=== PATIENT | female | born 1990 | race Caucasian/White ===

== ENCOUNTER → 2018-04-02 15:01 | Outpatient (CLI) | payer SELFPAY ==
[2018-04-02 16:01] LABS: APPEARANCE CLEAR (CLEAR); BILIRUBIN NEGATIVE (NEGATIVE); COLOR YELLOW (YELLOW); GLUCOSE 250 mg/dL (NEGATIVE); KETONE NEGATIVE (NEGATIVE); NITRITE NEGATIVE (NEGATIVE); PROTEIN NEGATIVE (NEGATIVE); UROBILINOGEN NORMAL (NORMAL)
[2018-04-02 16:02] LABS: UDS - AMPHET POSITIVE QUAL (NEGATIVE); UDS - BARB NEGATIVE QUAL (NEGATIVE); UDS - BENZO NEGATIVE QUAL (NEGATIVE); UDS - COCAINE NEGATIVE QUAL (NEGATIVE); UDS - OPIATE NEGATIVE QUAL (NEGATIVE); UDS - PCP NEGATIVE QUAL (NEGATIVE); UDS - THC POSITIVE QUAL (NEGATIVE)
== END | disposition home or self-care (01) ==
LOC: D.LDO 15:01
PROVIDERS: Obstetrics & Gynecology
DX: O26.893 Other specified pregnancy related conditions, third trimester (principal); Z3A.30 30 weeks gestation of pregnancy; R20.2 Paresthesia of skin; R10.32 Left lower quadrant pain

== ENCOUNTER 2018-05-01 17:36 | Outpatient (CLI) | payer SELFPAY ==
[2018-05-01 19:31] LABS: APPEARANCE CLEAR (CLEAR); BILIRUBIN NEGATIVE (NEGATIVE); COLOR YELLOW (YELLOW); GLUCOSE NEGATIVE (NEGATIVE); KETONE NEGATIVE (NEGATIVE); NITRITE NEGATIVE (NEGATIVE); PROTEIN NEGATIVE (NEGATIVE); SPECIFIC GRAVITY 1.015 (1.005-1.020); UROBILINOGEN NORMAL (NORMAL)
[2018-05-01 19:41] LABS: UDS - AMPHET NEGATIVE QUAL (NEGATIVE); UDS - BARB NEGATIVE QUAL (NEGATIVE); UDS - BENZO NEGATIVE QUAL (NEGATIVE); UDS - COCAINE NEGATIVE QUAL (NEGATIVE); UDS - OPIATE NEGATIVE QUAL (NEGATIVE); UDS - PCP NEGATIVE QUAL (NEGATIVE); UDS - THC POSITIVE QUAL (NEGATIVE)
== END 2018-05-01 19:10 | disposition home or self-care (01) ==
LOC: D.LDO 17:36
PROVIDERS: Obstetrics & Gynecology
DX: O26.893 Other specified pregnancy related conditions, third trimester (principal); Z3A.35 35 weeks gestation of pregnancy; R07.81 Pleurodynia

== ENCOUNTER 2018-05-21 07:05 | Inpatient (IN) | payer MEDICAID ==
[~2018-05-21] VITALS: Ht 152.4 cm; Wt 66.2 kg
--- NOTE | ~2018-05-21 | DS ---
PATIENT:ADRIANA MALDONADO :89 MEDICAL RECORD: [id number] DISCHARGE SUMMARY ADMISSION DATE: 05/21/18 DISCHARGE DATE: 05/23/18 The patient was admitted on 05/21/2018. HOSPITAL COURSE: A 27-year-old at 37 weeks and 5 days. The patient was noted to be O positive, group B strep positive, and rubella immune. The patient was admitted in active labor. The patient reported a past medical history significant for kidney stones. PAST SURGICAL HISTORY: Significant for appendectomy and removal of kidney stones. ALLERGIES: The patient reported allergies to ROCEPHIN. MEDICATIONS: Included vitamins. FAMILY HISTORY: The patient reported a family history significant for a parent with neurologic disorder and diabetes. SOCIAL HISTORY: The patient reported being a daily smoker of both cigarettes and marijuana. PHYSICAL EXAMINATION: VITAL SIGNS: On initial examination, the patient was found to be normotensive and afebrile. LUNGS: Clear to auscultation. HEART: Regular rate and rhythm. PELVIC: Uterus was appropriately sized and nontender. EXTREMITIES: Lower extremities were free of swelling or Homans sign. The patient was noted to be ting. wellbeing was reassuring with category 1 tracing. ASSESSMENT AND PLAN: 1. Admission, term intrauterine at 37 weeks and 5 days. 2. Labor. 3. Positive group B strep. Plan for management of labor augmentation as needed, AROM when appropriate, category 1 tracing. The patient started on antibiotics for group B strep. The patient was ruptured at approximately 4 cm with clear fluid, category 1 tracing was noted. The patient progressed to the second stage of labor and had a vacuum-assisted vaginal delivery over an intact perineum and repair of bilateral periurethral tears. Delivery note is as on the chart. The patient did well overnight on day #0, tolerating p.o. pain meds, general diet, ambulating well and voiding freely. On the morning of day #1, the patient continued to do well. Vital signs were stable. The patient was afebrile. Hemoglobin was found to be appropriate. Uterus was infraumbilical and appropriately tender with minimal lochia. The patient was tolerating general diet, p.o. pain meds and ambulating well. The patient was discharged home on day #1 with instructions to follow up in 4 weeks. TRANSINT:[id number] Voice Confirmation ID: [id number] DOCUMENT ID: [id number] DISCHARGE SUMMARY REPORT [id number] ADRIANA MALDONADO, JOSE MARTIN Whelan MD at 1754 CC: [id number] DICTATION DATE: 06/23/18 075 [place]: 06/23/18 1208 DIS IN 05/23/18 [place] [id number] [place] [id number]
[2018-05-21 08:05] LABS: APPEARANCE CLEAR (CLEAR); BILIRUBIN NEGATIVE (NEGATIVE); COLOR STRAW (YELLOW); GLUCOSE NEGATIVE (NEGATIVE); KETONE NEGATIVE (NEGATIVE); NITRITE NEGATIVE (NEGATIVE); PROTEIN NEGATIVE (NEGATIVE); UROBILINOGEN NORMAL (NORMAL)
[2018-05-21] MEDS ORDERED: PRENATAL COMPLE1 TAB PO (10:18)
[2018-05-21 10:29] VITALS: BP 104/58; BMI 28.5
[2018-05-21 10:38] LABS: HEMATOCRIT 32.1 % (36.0-48.0); HEMOGLOBIN 10.9 g/dL (12-16); MCH 29.3 pg (26.0-34.0); MCV 86.3 fL (80.0-100.0); RBC 3.72 10x6/uL (4.00-5.40); WBC 15.8 10x3/uL (4.8-10.8)
[2018-05-21 12:31] LABS: UDS - AMPHET NEGATIVE QUAL (NEGATIVE); UDS - BARB NEGATIVE QUAL (NEGATIVE); UDS - BENZO NEGATIVE QUAL (NEGATIVE); UDS - COCAINE NEGATIVE QUAL (NEGATIVE); UDS - OPIATE NEGATIVE QUAL (NEGATIVE); UDS - PCP NEGATIVE QUAL (NEGATIVE); UDS - THC POSITIVE QUAL (NEGATIVE)
[2018-05-21 19:10] VITALS: BP 112/61
[2018-05-22 06:13] LABS: RAPID PLASMA REAGIN Non Reactive (Non Reactive)
[2018-05-22 07:06] LABS: BASOPHILS 0.2 % (0-2); EOSINOPHILS 1.1 % (0-7); HEMATOCRIT 30.4 % (36.0-48.0); HEMOGLOBIN 10.2 g/dL (12-16); IMMATURE GRANULOCYTES 0.7 % (0-5); LYMPHOCYTES 27.4 % (15-50); MCH 28.8 pg (26.0-34.0); MCHC 33.6 g/dL (31.0-37.0); MCV 85.9 fL (80.0-100.0); MEAN PLATELET VOLUME 11.3 fL (7.4-10.4); MONOCYTES 8.9 % (2-11); NEUTROPHILS 61.7 % (40-80); PLATELET COUNT 225 10x3/uL (130-400); RBC 3.54 10x6/uL (4.00-5.40)
[2018-05-22 07:50] VITALS: BP 98/60
[2018-05-22 15:10] VITALS: Ht 152.4 cm; Wt 66.2 kg
[2018-05-22 15:23] VITALS: BP 110/71
[2018-05-22 20:02] VITALS: BP 119/84
[2018-05-23 08:19] LABS: BASOPHILS 0.4 % (0-2); EOSINOPHILS 2.4 % (0-7); HEMATOCRIT 32.5 % (36.0-48.0); HEMOGLOBIN 10.9 g/dL (12-16); IMMATURE GRANULOCYTES 0.9 % (0-5); MCH 28.8 pg (26.0-34.0); MCHC 33.5 g/dL (31.0-37.0); MCV 85.8 fL (80.0-100.0); MEAN PLATELET VOLUME 11.3 fL (7.4-10.4); MONOCYTES 8.2 % (2-11); NEUTROPHILS 56.1 % (40-80); PLATELET COUNT 257 10x3/uL (130-400); RBC 3.79 10x6/uL (4.00-5.40); RDW 13.2 % (11.5-14.5); WBC 14.1 10x3/uL (4.8-10.8)
[2018-05-23 09:31] VITALS: BP 117/65
[2018-05-25 08:16] LABS: UDSC - AMPHET Negative ng/mL (Cutoff=1000); UDSC - BARB Negative ng/mL (Cutoff=300); UDSC - BENZO Negative ng/mL (Cutoff=300); UDSC - COC Negative ng/mL (Cutoff=300); UDSC - METH Negative ng/mL (Cutoff=300); UDSC - OPIATES Negative ng/mL (Cutoff=300); UDSC - PCP Negative ng/mL (Cutoff=25); UDSC - PROPOXY Negative ng/mL (Cutoff=300); UDSC - THC Positive (Cutoff=50)
== END 2018-05-23 16:45 | disposition home or self-care (01) | DRG 775 ==
LOC: D.LDO 07:05 → D.LD 10:09
PROVIDERS: Obstetrics & Gynecology
PROC: 10907ZC Drainage of Amniotic Fluid, Therapeutic from Products of Conception, Via Natural or Artificial Opening (ICD-10-PCS; principal; 2018-05-21)
PROC: 10D07Z3 Extraction of Products of Conception, Low Forceps, Via Natural or Artificial Opening (ICD-10-PCS; 2018-05-21)
PROC: 0HQ9XZZ Repair Perineum Skin, External Approach (ICD-10-PCS; 2018-05-21)
DX: O99.824 Streptococcus B carrier state complicating childbirth (principal); O76 Abnormality in fetal heart rate and rhythm complicating labor and delivery; O70.0 First degree perineal laceration during delivery; O69.81X0 Labor and delivery complicated by cord around neck, without compression, not applicable or unspecified; Z3A.37 37 weeks gestation of pregnancy; Z37.0 Single live birth

== ENCOUNTER 2019-10-19 10:16 | Emergency (ER) | payer MEDICAID ==
[~2019-10-19] VITALS: Ht 152.4 cm; Wt 54.5 kg
[~2019-10-19 10:16] MED LIST: PRENATAL COMPLE1 TAB PO
[2019-10-19 10:26] VITALS: Ht 152.4 cm; Wt 54.5 kg
[2019-10-19] MEDS ORDERED: HYDROCODON-ACE1 EA10 PO (10:41)
[2019-10-19] MEDS ORDERED: AUGMENTIN 875-11 TAB PO (10:42)
[2019-10-19 10:49] VITALS: BP 106/72
== END 2019-10-19 10:50 | disposition home or self-care (01) ==
LOC: D.ER 10:16
DX: H66.91 Otitis media, unspecified, right ear (principal); Z72.0 Tobacco use

== ENCOUNTER 2020-02-13 13:49 | Emergency (ER) | payer MEDICAID ==
[~2020-02-13] VITALS: Ht 152.4 cm; Wt 54.5 kg
[~2020-02-13 13:49] MED LIST changes: +AUGMENTIN 875-11 TAB PO; +HYDROCODON-ACE1 EA10 PO
[2020-02-13 13:55] VITALS: Ht 152.4 cm; Wt 54.5 kg
[2020-02-13] MEDS ORDERED: CLINDAMYCIN HC300 MG PO (15:30)
[2020-02-13] MEDS ORDERED: HYDROCODON-ACE1 EAC7 PO (15:30)
[2020-02-13 15:49] VITALS: BP 130/94
== END 2020-02-13 15:50 | disposition home or self-care (01) ==
LOC: D.ER 13:49
DX: L02.31 Cutaneous abscess of buttock (principal)